=== PATIENT | female | born 1955 | race Two or more races ===

== ENCOUNTER 2023-12-30 22:38 | Emergency (ER) | payer OTHER ==
[~2023-12-30] VITALS: Ht 149.9 cm; Wt 69.9 kg
[2023-12-30] MEDS ORDERED: LEVOTHYROXINE25 MCG PO (22:58)
[2023-12-30] MEDS ORDERED: LOSARTAN POTASS50 MG PO (22:58)
[2023-12-31] MEDS ORDERED: FAMOTIDINE/PF 20 MG/2 ML VIAL IV PUSH STA (00:21)
[2023-12-31] MEDS ORDERED: MEPERIDINE HCL/PF 50 MG/ML VIAL IM STA (00:22)
[2023-12-31] MEDS ORDERED: PROMETHAZINE HCL 50 MG/ML AMPUL IM STA (00:22)
[2023-12-31] MEDS ORDERED: 0.9 % SODIUM CHLORIDE 1,000 ML IV ONE (00:30)
[2023-12-31] MEDS ORDERED: BARIUM SULFATE 450 ML ORAL.SUSP PO ONE (00:31)
[2023-12-31] MEDS ORDERED: PROMETHAZINE HCL 50 MG/ML AMPUL IM ONE (00:31)
[2023-12-31] MEDS ORDERED: FAMOTIDINE/PF 20 MG/2 ML VIAL ONE (00:32)
[2023-12-31 01:48] LABS: ALBUMIN 4.1 gm/dL (3.4-5.0); BILIRUBIN TOTAL 0.87 mg/dL (0.3-1.2); BILIRUBIN,CONJUGATED 0.21 mg/dL (0.0-0.2); BILIRUBIN,UNCONJUGATED 0.66 mg/dL (0.0-0.6); CALCIUM 9.8 mg/dL (8.5-10.1); CREATININE SERUM 0.58 mg/dL (0.55-1.02); GFR 103.38; GLOBULINA 3.7 G/DL (2.4-3.5); POTASSIUM 3.74 mEq/L (3.5-5.1); TOTAL PROTEIN 7.8 gm/dL (6.4-8.2)
[2023-12-31 02:15] LABS: HEMATOCRIT 43.7 % (36.0-45.00); HEMOGLOBIN 15.1 g/dL (12.0-15.00); MEAN CELL VOLUME 88.8 fL (80.00-100.00); MEAN CORPUSCULAR HEMOGLOBIN 30.7 pg (27.00-32.0); MEAN CORPUSCULAR HGB CONC 34.6 g/dl (32.0-36.0); PLATELET COUNT 285 K/uL (150-450); RED BLOOD COUNT 4.92 M/uL (4.00-6.00); RED CELL DISTRIBUTION WIDTH 13.7 % (11.5-14.5)
[2023-12-31 03:42] LABS: URINE APPEARANCE Clear; URINE BILIRRUBIN Negative (NEGATIVE); URINE BLOOD Negative; URINE COLOR Yellow; URINE GLUCOSE Negative (NEGATIVE); URINE LEUKOCYTE Small; URINE NITRATE Negative; URINE PROTEIN Negative (NEGATIVE); URINE UROBILINOGEN 0.2 E.U./dl
[2023-12-31 03:47] LABS: URINE RBC 7.4 uL (0.0-20.8); URINE WBC 15.9 uL (0.0-23.2)
[2023-12-31 04:12] LABS: URINE KETONE 80 (NEGATIVE)
[2023-12-31] MEDS ORDERED: CIPROFLOXACIN IN 5 % DEXTROSE 400 MG/200 ML PIGGYBAG IV STA (06:05)
[2023-12-31] MEDS ORDERED: METRONIDAZOLE/SODIUM CHLORIDE 500 MG/100 ML PIGGYBACK IV STA (06:05)
[2023-12-31] MEDS ORDERED: CIPROFLOXACIN IN 5 % DEXTROSE 400 MG/200 ML PIGGYBAG IV ONE (06:06)
[2023-12-31] MEDS ORDERED: METRONIDAZOLE/SODIUM CHLORIDE 500 MG/100 ML PIGGYBACK IV ONE (06:06)
[2023-12-31 10:09] LABS: INR 1.07; PARTIAL THROMBOPLASTIN TIME 33.4 SECONDS (22.0-34.0); PROTHROMBIN TIME 11.6 SECONDS (9.0-11.5)
== END 2023-12-31 09:54 | disposition home or self-care (01) ==
LOC: ER 22:39
PROVIDERS: General Practice
DX: K52.9 Noninfective gastroenteritis and colitis, unspecified (principal); R10.9 Unspecified abdominal pain; I10 Essential (primary) hypertension; E03.8 Other specified hypothyroidism; Z88.6 Allergy status to analgesic agent
CPT/HCPCS: 36415; 74177; 96365; 96366; 96372; 99284; J0744; J2550; J3490 ×3; J7030